=== PATIENT | male | born 1960 | race Caucasian/White ===

== ENCOUNTER 2016-07-28 11:41 | Inpatient (IN) | payer OTHER ==
[2016-07-28 13:01] VITALS: BMI 31.1
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
[2016-07-28] MEDS ORDERED: IBUPROFEN 400 MG TABLET (FP) PO PRN (15:12)
[2016-07-28] MEDS ORDERED: chlordiazePOXIDE HCL 25 MG CAPSULE PO PRN (15:12)
[2016-07-28] MEDS ORDERED: ACETAMINOPHEN 325 MG TABLET (FP) PO PRN (15:12)
[2016-07-28] MEDS ORDERED: MAGNESIUM HYDROX 2400MG/30ML ORAL SUSPENSION 30 ML CUP PO PRN (15:12)
[2016-07-28] MEDS ORDERED: MENTHOL/PHENOL 1 EACH UD MM PRN (15:12)
[2016-07-28] MEDS ORDERED: MAG HYDROX/AL HYDROX/SIMETH 30 ML UNIT-DOSE CUP PO PRN (15:12)
[2016-07-28] MEDS ORDERED: LOPERAMIDE HCL 2 MG CAPSULE PO PRN (15:12)
[2016-07-28] MEDS ORDERED: hydrOXYzine PAMOATE 25 MG CAPSULE (FP) PO PRN (15:12)
[2016-07-28] MEDS ORDERED: MAGNESIUM CITRATE 300 ML BOTTLE PO PRN (15:12)
[2016-07-28] MEDS: chlordiazePOXIDE HCL 25 MG CAPSULE PO SCH ×2 (17:35→22:48)
[2016-07-28 18:57] LABS: URINE APPEARANCE CLEAR; URINE BILIRUBIN NEGATIVE (NEGATIVE); URINE BLOOD NEGATIVE (NEGATIVE); URINE COLOR YELLOW; URINE GLUCOSE (UA) NEGATIVE (NEGATIVE); URINE KETONE NEGATIVE (NEGATIVE); URINE LEUK ESTERASE NEGATIVE (NEGATIVE); URINE NITRITE NEGATIVE (NEGATIVE); URINE PROTEIN NEGATIVE (NEGATIVE); URINE UROBILINOGEN 2.0 E.U/dl E.U./dl (0.2-1.0)
[2016-07-28] MEDS: diphenhydrAMINE HCL 50 MG CAPSULE PO PRN (22:48)
[2016-07-28] MEDS: THIAMINE HCL 100 MG TABLET (FP) PO SCH (22:48)
[2016-07-28] MEDS: METOPROLOL TARTRATE 25 MG TABLET (FP) PO SCH (22:48)
[2016-07-29] MEDS: chlordiazePOXIDE HCL 25 MG CAPSULE PO SCH ×4 (05:31→22:39)
[2016-07-29] MEDS: P-EPHED 60MG/TRIPROLIDI 2.5MG TABLET PO PRN ×2 (06:53→17:28)
[2016-07-29] MEDS ORDERED: PATIENT'S OWN MEDICATION (NON-FORMULARY) (Edoxaban Tosylate [Savaysa] 60 MG) PO SCH (10:00)
[2016-07-29] MEDS ORDERED: VALSARTAN 40 MG PO SCH (10:00)
[2016-07-29 10:07] LABS: MCH 34.7 pg (25.7-33.7); MEAN CELL VOLUME 102.3 fl (80-96); MEAN PLT VOLUME 8.5 fl (7.5-11.1); PLATELET COUNT 196 K/MM3 (134-434); RDW 14.2 % (11.9-15.9); WHITE BLOOD COUNT 7.4 K/mm3 (4.0-10.0)
[2016-07-29 10:11] LABS: MCHC 33.9 g/dl (32.0-35.9)
[2016-07-29 10:29] LABS: ALBUMIN 3.5 g/dl (3.4-5.0); ALK PHOS 57 U/L (45-117); ANION GAP 13 (8-16); BILIRUBIN,TOTAL 0.7 mg/dL (0.2-1.0); CALCIUM 9.1 mg/dL (8.5-10.1); CO2 27 mmol/L (21-32); COCKROFT - GAULT 145.75; CREATININE 0.8 mg/dL (0.7-1.3); GLUCOSE,RANDOM 90 mg/dL (74-106); SGOT/AST 38 U/L (15-37); SGPT/ALT 23 U/L (12-78); TOT PROT 6.9 g/dl (6.4-8.2)
[2016-07-29] MEDS: PANTOPRAZOLE 40 MG TABLET (FP) PO SCH (10:34)
[2016-07-29] MEDS: ASPIRIN 81 MG CHEWABLE TABLETS PO SCH (10:34)
[2016-07-29] MEDS: PRENATAL VITAMINS W/ FOLIC ACID TABLET (FP) PO SCH (10:34)
[2016-07-29] MEDS: METOPROLOL TARTRATE 25 MG TABLET (FP) PO SCH ×2 (10:35→22:39)
[2016-07-29] MEDS: EDOXABAN TOSYLATE 30 MG TABLET PO SCH (10:35)
[2016-07-29] MEDS: VALSARTAN 40 MG TABLET (FP) PO SCH (10:35)
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
[2016-07-29] MEDS: ESCITALOPRAM OXALATE 10 MG TABLET (FP) PO SCH (11:20)
--- NOTE | 2016-07-29 11:43 | PN ---
[facility] CIWA - CIWA Score Nausea/Vomitin-No Nausea/No Vomiting Muscle Tremors: 4-Moderate,w/Arms Extend Anxiety: 4-Mod. Anxious/Guarded Agitation: 4-Moderately Restless Paroxysmal Sweats: 1-Minimal Palms Moist Orientation: 0-Oriented Tacttile Disturbances: 3-Moderate Itch/Numb/Burn Auditory Disturbances: 0-None Visual Disturbances: 0-None Headache: 0-None Present CIWA-Ar Total Score: 16 S Progress Note (SOAP) Subjective: ANXIETY,TREMORS,SWEATS,INTERMITTENT SLEEP. PT STATES HX DEPRESSION AND PSYCH CONSULT. Objective: 07/29/16 11:43 Vital Signs Temperature 97.2 F L 07/29/16 09:42 Pulse Rate 91 H 07/29/16 09:42 Respiratory Rate 20 07/29/16 09:42 Blood Pressure 134/87 07/29/16 09:42 O2 Sat by Pulse Oximetry (%) Laboratory Last Values WBC 7.4 K/mm3 (4.0-10.0) 07/29/16 06:00 RBC 4.15 M/mm3 (4.00-5.60) 07/29/16 06:00 Hgb 14.4 GM/dL (11.7-16.9) 07/29/16 06:00 Hct 42.5 % (35.4-49) 07/29/16 06:00 MCV 102.3 fl (80-96) H 07/29/16 06:00 MCHC 33.9 g/dl (32.0-35.9) 07/29/16 06:00 RDW 14.2 % (11.9-15.9) 07/29/16 06:00 Plt Count 196 K/MM3 (134-434) 07/29/16 06:00 MPV 8.5 fl (7.5-11.1) 07/29/16 06:00 Sodium 142 mmol/L (136-145) 07/29/16 06:00 Potassium 4.0 mmol/L (3.5-5.1) 07/29/16 06:00 Chloride 102 mmol/L (98-107) 07/29/16 06:00 Carbon Dioxide 27 mmol/L (21-32) 07/29/16 06:00 Anion Gap 13 (8-16) 07/29/16 06:00 BUN 6 mg/dL (7-18) L 07/29/16 06:00 Creatinine 0.8 mg/dL (0.7-1.3) 07/29/16 06:00 Creat Clearance w eGFR > 60 (>60) 07/29/16 06:00 Random Glucose 90 mg/dL (74-106) 07/29/16 06:00 Calcium 9.1 mg/dL (8.5-10.1) 07/29/16 06:00 Total Bilirubin 0.7 mg/dL (0.2-1.0) 07/29/16 06:00 AST 38 U/L (15-37) H 07/29/16 06:00 ALT 23 U/L (12-78) 07/29/16 06:00 Alkaline Phosphatase 57 U/L (45-117) 07/29/16 06:00 Total Protein 6.9 g/dl (6.4-8.2) 07/29/16 06:00 Albumin 3.5 g/dl (3.4-5.0) 07/29/16 06:00 Urine Color Yellow 07/28/16 15:00 Urine Appearance Clear 07/28/16 15:00 Urine pH 5.0 (5.0-8.0) 07/28/16 15:00 Ur Specific [place] 1.025 (1.005-1.025) 07/28/16 15:00 Urine Protein Negative (NEGATIVE) 07/28/16 15:00 Urine Glucose (UA) Negative (NEGATIVE) 07/28/16 15:00 Urine Ketones Negative (NEGATIVE) 07/28/16 15:00 Urine Blood Negative (NEGATIVE) 07/28/16 15:00 Urine Nitrite Negative (NEGATIVE) 07/28/16 15:00 Urine Bilirubin Negative (NEGATIVE) 07/28/16 15:00 Urine Urobilinogen 2.0 e.u/dl E.U./dl (0.2-1.0) 07/28/16 15:00 Ur Leukocyte Esterase Negative (NEGATIVE) 07/28/16 15:00 Assessment: 07/29/16 11:43 WITHDRAWAL SX Plan: CONTINUE DETOX PSYCH CONSULT TODAY
--- NOTE | 2016-07-29 13:22 | EKG ---
Test Reason : Blood Pressure : / mmHG Vent. Rate : 081 BPM Atrial Rate : 084 BPM P-R Int : 000 ms QRS Dur : 166 ms QT Int : 438 ms P-R-T Axes : 000 265 090 degrees QTc Int : 508 ms Ventricular-paced rhythm ABNORMAL ECG NO PREVIOUS ECGS AVAILABLE Confirmed by FARZANA PINTO, GRADY ([id number]) on 07/29/2016 1:21:49 PM Referred By: Confirmed By:GARDY YANES MD
[2016-07-29] MEDS: traZODone HCL 50 MG TABLET (FP) PO SCH (22:39)
[2016-07-29] MEDS: THIAMINE HCL 100 MG TABLET (FP) PO SCH (22:39)
[2016-07-29] MEDS: diphenhydrAMINE HCL 50 MG CAPSULE PO PRN (22:40)
[2016-07-30] MEDS: chlordiazePOXIDE HCL 25 MG CAPSULE PO SCH ×2 (05:44→10:45)
[2016-07-30] MEDS: P-EPHED 60MG/TRIPROLIDI 2.5MG TABLET PO PRN ×2 (05:45→15:01)
[2016-07-30] MEDS ORDERED: BACITRACIN 0.9 GM PACKET TP SCH (10:00)
[2016-07-30] MEDS: PRENATAL VITAMINS W/ FOLIC ACID TABLET (FP) PO SCH (10:44)
[2016-07-30] MEDS: ASPIRIN 81 MG CHEWABLE TABLETS PO SCH (10:44)
[2016-07-30] MEDS: PANTOPRAZOLE 40 MG TABLET (FP) PO SCH (10:44)
[2016-07-30] MEDS: ESCITALOPRAM OXALATE 10 MG TABLET (FP) PO SCH (10:44)
[2016-07-30] MEDS: EDOXABAN TOSYLATE 30 MG TABLET PO SCH (10:45)
[2016-07-30] MEDS: METOPROLOL TARTRATE 25 MG TABLET (FP) PO SCH ×2 (10:45→22:48)
[2016-07-30] MEDS: BACITRACIN 0.9 GM PACKET TP SCH ×2 (10:45→22:48)
[2016-07-30] MEDS: VALSARTAN 40 MG TABLET (FP) PO SCH (10:45)
--- NOTE | 2016-07-30 12:09 | PN ---
[facility] CIWA - CIWA Score Nausea/Vomitin-No Nausea/No Vomiting Muscle Tremors: 4-Moderate,w/Arms Extend Anxiety: 4-Mod. Anxious/Guarded Agitation: 4-Moderately Restless Paroxysmal Sweats: 1-Minimal Palms Moist Orientation: 0-Oriented Tacttile Disturbances: 3-Moderate Itch/Numb/Burn Auditory Disturbances: 0-None Visual Disturbances: 0-None Headache: 0-None Present CIWA-Ar Total Score: 16 S Progress Note (SOAP) Subjective: ANXIETY,SWEATS,MULTIPLE ITCHY RED OLD/NEW LESIONS ON LEGS AND RIGHT HAND. Objective: 07/30/16 12:08 Vital Signs Temperature 97.1 F L 07/30/16 09:28 Pulse Rate 79 07/30/16 09:28 Respiratory Rate 18 07/30/16 09:28 Blood Pressure 110/76 07/30/16 09:28 O2 Sat by Pulse Oximetry (%) Laboratory Last Values WBC 7.4 K/mm3 (4.0-10.0) 07/29/16 06:00 RBC 4.15 M/mm3 (4.00-5.60) 07/29/16 06:00 Hgb 14.4 GM/dL (11.7-16.9) 07/29/16 06:00 Hct 42.5 % (35.4-49) 07/29/16 06:00 MCV 102.3 fl (80-96) H 07/29/16 06:00 MCHC 33.9 g/dl (32.0-35.9) 07/29/16 06:00 RDW 14.2 % (11.9-15.9) 07/29/16 06:00 Plt Count 196 K/MM3 (134-434) 07/29/16 06:00 MPV 8.5 fl (7.5-11.1) 07/29/16 06:00 Sodium 142 mmol/L (136-145) 07/29/16 06:00 Potassium 4.0 mmol/L (3.5-5.1) 07/29/16 06:00 Chloride 102 mmol/L (98-107) 07/29/16 06:00 Carbon Dioxide 27 mmol/L (21-32) 07/29/16 06:00 Anion Gap 13 (8-16) 07/29/16 06:00 BUN 6 mg/dL (7-18) L 07/29/16 06:00 Creatinine 0.8 mg/dL (0.7-1.3) 07/29/16 06:00 Creat Clearance w eGFR > 60 (>60) 07/29/16 06:00 Random Glucose 90 mg/dL (74-106) 07/29/16 06:00 Calcium 9.1 mg/dL (8.5-10.1) 07/29/16 06:00 Total Bilirubin 0.7 mg/dL (0.2-1.0) 07/29/16 06:00 AST 38 U/L (15-37) H 07/29/16 06:00 ALT 23 U/L (12-78) 07/29/16 06:00 Alkaline Phosphatase 57 U/L (45-117) 07/29/16 06:00 Total Protein 6.9 g/dl (6.4-8.2) 07/29/16 06:00 Albumin 3.5 g/dl (3.4-5.0) 07/29/16 06:00 Urine Color Yellow 07/28/16 15:00 Urine Appearance Clear 07/28/16 15:00 Urine pH 5.0 (5.0-8.0) 07/28/16 15:00 Ur Specific [place] 1.025 (1.005-1.025) 07/28/16 15:00 Urine Protein Negative (NEGATIVE) 07/28/16 15:00 Urine Glucose (UA) Negative (NEGATIVE) 07/28/16 15:00 Urine Ketones Negative (NEGATIVE) 07/28/16 15:00 Urine Blood Negative (NEGATIVE) 07/28/16 15:00 Urine Nitrite Negative (NEGATIVE) 07/28/16 15:00 Urine Bilirubin Negative (NEGATIVE) 07/28/16 15:00 Urine Urobilinogen 2.0 e.u/dl E.U./dl (0.2-1.0) 07/28/16 15:00 Ur Leukocyte Esterase Negative (NEGATIVE) 07/28/16 15:00 RPR Titer Nonreactive (NONREACTIVE) 07/29/16 06:00 Assessment: 07/30/16 12:09 WITHDRAWAL SX BODY RASH Plan: CONTINUE DETOX BACITRACIN OINTMENT DIRECTED
[2016-07-30] MEDS: guaiFENesin/D-METHORPHAN HB 10 ML UNIT-DOSE CUPS PO PRN (15:00)
[2016-07-30] MEDS: chlordiazePOXIDE 5 MG CAPSULE PO SCH ×2 (17:28→22:49)
[2016-07-30] MEDS: traZODone HCL 50 MG TABLET (FP) PO SCH (22:48)
[2016-07-30] MEDS: THIAMINE HCL 100 MG TABLET (FP) PO SCH (22:48)
[2016-07-31] MEDS: chlordiazePOXIDE 5 MG CAPSULE PO SCH ×2 (06:04→10:49)
[2016-07-31] MEDS: METOPROLOL TARTRATE 25 MG TABLET (FP) PO SCH ×2 (10:50→22:47)
[2016-07-31] MEDS: BACITRACIN 0.9 GM PACKET TP SCH ×2 (10:50→22:47)
[2016-07-31] MEDS: ESCITALOPRAM OXALATE 10 MG TABLET (FP) PO SCH (10:50)
[2016-07-31] MEDS: PANTOPRAZOLE 40 MG TABLET (FP) PO SCH (10:50)
[2016-07-31] MEDS: VALSARTAN 40 MG TABLET (FP) PO SCH (10:50)
[2016-07-31] MEDS: PRENATAL VITAMINS W/ FOLIC ACID TABLET (FP) PO SCH (10:50)
[2016-07-31] MEDS: ASPIRIN 81 MG CHEWABLE TABLETS PO SCH (10:50)
[2016-07-31] MEDS: EDOXABAN TOSYLATE 30 MG TABLET PO SCH (10:50)
--- NOTE | 2016-07-31 12:10 | PN ---
[facility] Progress Note (SOAP) Subjective: DECREASED ANXIETY,TREMORS. Objective: 07/31/16 12:10 Vital Signs Temperature 97.8 F 07/31/16 10:28 Pulse Rate 62 07/31/16 10:28 Respiratory Rate 18 07/31/16 10:28 Blood Pressure 99/73 07/31/16 10:28 O2 Sat by Pulse Oximetry (%) Assessment: 07/31/16 12:10 DECREASED WITHDRAWAL SX Plan: CONTINUE DETOX
[2016-07-31] MEDS: guaiFENesin/D-METHORPHAN HB 10 ML UNIT-DOSE CUPS PO PRN (12:46)
[2016-07-31] MEDS: chlordiazePOXIDE HCL 10 MG CAPSULE PO SCH ×2 (17:27→22:47)
[2016-07-31] MEDS: traZODone HCL 50 MG TABLET (FP) PO SCH (22:47)
[2016-07-31] MEDS: diphenhydrAMINE HCL 50 MG CAPSULE PO PRN (22:48)
[2016-07-31] MEDS: THIAMINE HCL 100 MG TABLET (FP) PO SCH (22:59)
[2016-08-01] MEDS: chlordiazePOXIDE HCL 10 MG CAPSULE PO SCH ×2 (06:08→10:53)
[2016-08-01] MEDS: PRENATAL VITAMINS W/ FOLIC ACID TABLET (FP) PO SCH (10:52)
[2016-08-01] MEDS: BACITRACIN 0.9 GM PACKET TP SCH (10:52)
[2016-08-01] MEDS: EDOXABAN TOSYLATE 30 MG TABLET PO SCH (10:53)
[2016-08-01] MEDS: VALSARTAN 40 MG TABLET (FP) PO SCH (10:53)
[2016-08-01] MEDS: PANTOPRAZOLE 40 MG TABLET (FP) PO SCH (10:53)
[2016-08-01] MEDS: ESCITALOPRAM OXALATE 10 MG TABLET (FP) PO SCH (10:53)
[2016-08-01] MEDS: METOPROLOL TARTRATE 25 MG TABLET (FP) PO SCH (10:53)
[2016-08-01] MEDS: ASPIRIN 81 MG CHEWABLE TABLETS PO SCH (10:53)
[2016-08-01 11:47] VITALS: BP 91/63; PULSE 63; TEMP 97.7
--- NOTE | 2016-08-01 14:40 | DS ---
[facility] Detox Discharge Summary Admission Date: 07/28/16 Discharge Date: 08/01/16 - History Present History: Alcohol Dependence Additional Comments: ADVISED PATIENT TO FOLLOW-UP WITH [facility] / REHAB MEDICAL PROVIDER AFTER DISCHARGE FROM DETOX FOR GENERAL MEDICAL ASSESSMENT AND FOR ABNORMAL ADMISSION LAB VALUES. Pertinent Past History: HTN, A-Fib, Pacemaker, Hx. of CVA, Hypercholesterolemia, Depression. - Physical Exam Results Vital Signs: Vital Signs Temperature 97.7 F 08/01/16 11:47 Pulse Rate 63 08/01/16 11:47 Respiratory Rate 18 08/01/16 11:47 Blood Pressure 91/63 08/01/16 11:47 O2 Sat by Pulse Oximetry (%) Pertinent Admission Physical Exam Findings: WITHDRAWAL SYMPTOMS. Laboratory Last Values WBC 7.4 K/mm3 (4.0-10.0) 07/29/16 06:00 RBC 4.15 M/mm3 (4.00-5.60) 07/29/16 06:00 Hgb 14.4 GM/dL (11.7-16.9) 07/29/16 06:00 Hct 42.5 % (35.4-49) 07/29/16 06:00 MCV 102.3 fl (80-96) H 07/29/16 06:00 MCHC 33.9 g/dl (32.0-35.9) 07/29/16 06:00 RDW 14.2 % (11.9-15.9) 07/29/16 06:00 Plt Count 196 K/MM3 (134-434) 07/29/16 06:00 MPV 8.5 fl (7.5-11.1) 07/29/16 06:00 Sodium 142 mmol/L (136-145) 07/29/16 06:00 Potassium 4.0 mmol/L (3.5-5.1) 07/29/16 06:00 Chloride 102 mmol/L (98-107) 07/29/16 06:00 Carbon Dioxide 27 mmol/L (21-32) 07/29/16 06:00 Anion Gap 13 (8-16) 07/29/16 06:00 BUN 6 mg/dL (7-18) L 07/29/16 06:00 Creatinine 0.8 mg/dL (0.7-1.3) 07/29/16 06:00 Creat Clearance w eGFR > 60 (>60) 07/29/16 06:00 Random Glucose 90 mg/dL (74-106) 07/29/16 06:00 Calcium 9.1 mg/dL (8.5-10.1) 07/29/16 06:00 Total Bilirubin 0.7 mg/dL (0.2-1.0) 07/29/16 06:00 AST 38 U/L (15-37) H 07/29/16 06:00 ALT 23 U/L (12-78) 07/29/16 06:00 Alkaline Phosphatase 57 U/L (45-117) 07/29/16 06:00 Total Protein 6.9 g/dl (6.4-8.2) 07/29/16 06:00 Albumin 3.5 g/dl (3.4-5.0) 07/29/16 06:00 Urine Color Yellow 07/28/16 15:00 Urine Appearance Clear 07/28/16 15:00 Urine pH 5.0 (5.0-8.0) 07/28/16 15:00 Ur Specific [place] 1.025 (1.005-1.025) 07/28/16 15:00 Urine Protein Negative (NEGATIVE) 07/28/16 15:00 Urine Glucose (UA) Negative (NEGATIVE) 07/28/16 15:00 Urine Ketones Negative (NEGATIVE) 07/28/16 15:00 Urine Blood Negative (NEGATIVE) 07/28/16 15:00 Urine Nitrite Negative (NEGATIVE) 07/28/16 15:00 Urine Bilirubin Negative (NEGATIVE) 07/28/16 15:00 Urine Urobilinogen 2.0 e.u/dl E.U./dl (0.2-1.0) 07/28/16 15:00 Ur Leukocyte Esterase Negative (NEGATIVE) 07/28/16 15:00 RPR Titer Nonreactive (NONREACTIVE) 07/29/16 06:00 LABS NOTED. - Treatment Hospital Course: Detox Protocol Followed, Detoxed Safely, Responded well, Discharged Condition Good, Rehab Referral Accepted Patient has Accepted a Rehab Referral to: YES - [facility]. - Medication Discharge Medications: Ambulatory Orders Aspirin [ASA -] 81 mg PO DAILY 07/28/16 Edoxaban Tosylate [Savaysa] 60 mg PO DAILY 07/28/16 Escitalopram Oxalate [Lexapro -] 20 mg PO DAILY 07/28/16 Folic Acid - 1 mg PO DAILY 07/28/16 Metoprolol Tartrate [Lopressor -] 25 mg PO BID 07/28/16 Pantoprazole Sodium [Protonix -] 40 mg PO DAILY 07/28/16 Trazodone HCl [Desyrel -] 50 mg PO HS 07/28/16 Valsartan [Diovan] 40 mg PO DAILY 07/28/16 - Diagnosis (1) Alcohol dependence with uncomplicated withdrawal Current Visit: Yes Status: Acute (2) Alcohol-induced mood disorder Current Visit: Yes Status: Acute (3) Depressive disorder Current Visit: Yes Status: Chronic (4) Insomnia Current Visit: Yes Status: Chronic Qualifiers: Insomnia type: unspecified Qualified Code(s): G47.00 - Insomnia, unspecified (5) A-fib Current Visit: Yes Status: Chronic Qualifiers: Atrial fibrillation type: unspecified Qualified Code(s): I48.91 - Unspecified atrial fibrillation (6) H/O fracture of ankle Current Visit: Yes Status: Chronic (7) HTN (hypertension) Current Visit: Yes Status: Chronic Qualifiers: Hypertension type: essential hypertension Qualified Code(s): I10 - Essential (primary) hypertension (8) Hypercholesterolemia Current Visit: Yes Status: Chronic (9) Left ankle swelling Current Visit: Yes Status: Chronic (10) Pacemaker Current Visit: Yes Status: Chronic (11) Status post CVA Current Visit: Yes Status: Chronic - AMA Did Patient Leave Against Medical Advice: No
== END 2016-08-01 12:25 | disposition other institution (70) | DRG 897 ==
LOC: YASAS 11:41 → Y3N 15:19
PROVIDERS: ADMIT Internal Medicine Addiction Medicine; ATTEND Internal Medicine Addiction Medicine
PROC: HZ2ZZZZ Detoxification Services for Substance Abuse Treatment (ICD-10-PCS; principal; 2016-08-01)
DX: F10.230 Alcohol dependence with withdrawal, uncomplicated (principal); F10.24 Alcohol dependence with alcohol-induced mood disorder; F32.89 Other specified depressive episodes; G47.00 Insomnia, unspecified; I48.91 Unspecified atrial fibrillation; I10 Essential (primary) hypertension; E78.00 Pure hypercholesterolemia, unspecified; Z86.73 Personal history of transient ischemic attack (TIA), and cerebral infarction without residual deficits; Z87.81 Personal history of (healed) traumatic fracture
CPT/HCPCS: 36415; 80053; 81003; 85027; 86593; 93005; 93010

== ENCOUNTER 2016-08-01 12:40 | Inpatient (IN) | payer OTHER ==
[2016-08-01] MEDS ORDERED: P-EPHED 60MG/TRIPROLIDI 2.5MG TABLET PO PRN (13:49)
[2016-08-01] MEDS ORDERED: MENTHOL/PHENOL 1 EACH UD MM PRN (13:49)
[2016-08-01] MEDS ORDERED: MAG HYDROX/AL HYDROX/SIMETH 30 ML UNIT-DOSE CUP PO PRN (13:49)
[2016-08-01] MEDS ORDERED: diphenhydrAMINE HCL 50 MG CAPSULE PO PRN (13:49)
[2016-08-01] MEDS ORDERED: LOPERAMIDE HCL 2 MG CAPSULE PO PRN (13:49)
[2016-08-01] MEDS ORDERED: MAGNESIUM HYDROX 2400MG/30ML ORAL SUSPENSION 30 ML CUP PO PRN (13:49)
[2016-08-01] MEDS ORDERED: MAGNESIUM CITRATE 300 ML BOTTLE PO PRN (13:49)
[2016-08-01] MEDS ORDERED: guaiFENesin/D-METHORPHAN HB 10 ML UNIT-DOSE CUPS PO PRN (13:49)
--- NOTE | 2016-08-01 13:56 | HP ---
[facility] Re[facility] Assess/Revision - Admission History Admitted to Rehab from: [facility] Date of Admission to Rehab: 08/01/16 - Vital signs Vital Signs: Vital Signs Period Temp Pulse Resp BP Sys/Alarcon Pulse Ox Last 24 Hr 97.7 F 80 20 114/58 - Findings Detox History & Physical reviewed: Yes Concur with findings: Yes Comments/Additional Findings: FOR REHAB PROTOCOL
[2016-08-01] MEDS: THIAMINE HCL 100 MG TABLET (FP) PO SCH (21:29)
[2016-08-01] MEDS: IBUPROFEN 400 MG TABLET (FP) PO PRN (21:30)
[2016-08-01] MEDS: hydrOXYzine PAMOATE 50 MG CAPSULE (FP) PO PRN (21:31)
[2016-08-01] MEDS: METOPROLOL TARTRATE 25 MG TABLET (FP) PO SCH (21:31)
[2016-08-02] MEDS ORDERED: PT OWN MED DRAWER 7, Y5N ONE (08:58)
[2016-08-02] MEDS: VALSARTAN 40 MG TABLET (FP) PO SCH (09:48)
[2016-08-02] MEDS: PANTOPRAZOLE 40 MG TABLET (FP) PO SCH (09:49)
[2016-08-02] MEDS: METOPROLOL TARTRATE 25 MG TABLET (FP) PO SCH ×2 (09:49→21:33)
[2016-08-02] MEDS: ASPIRIN 81 MG CHEWABLE TABLETS PO SCH (09:49)
[2016-08-02] MEDS: PRENATAL VITAMINS W/ FOLIC ACID TABLET (FP) PO SCH (09:49)
[2016-08-02] MEDS ORDERED: INFLUENZA VACCINE 60 MCG/0.5 ML (P/F DISP.SYRIN 16-17) IM ONE (13:16)
[2016-08-02] MEDS: IBUPROFEN 400 MG TABLET (FP) PO PRN (20:07)
[2016-08-02] MEDS: THIAMINE HCL 100 MG TABLET (FP) PO SCH (21:33)
[2016-08-02] MEDS: hydrOXYzine PAMOATE 50 MG CAPSULE (FP) PO PRN (21:33)
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
[2016-08-03] MEDS: ASPIRIN 81 MG CHEWABLE TABLETS PO SCH (09:34)
[2016-08-03] MEDS: PRENATAL VITAMINS W/ FOLIC ACID TABLET (FP) PO SCH (09:34)
[2016-08-03] MEDS: VALSARTAN 40 MG TABLET (FP) PO SCH (09:35)
[2016-08-03] MEDS: METOPROLOL TARTRATE 25 MG TABLET (FP) PO SCH ×2 (09:35→21:59)
[2016-08-03] MEDS: PANTOPRAZOLE 40 MG TABLET (FP) PO SCH (09:35)
[2016-08-03 13:26] LABS: HIV 1 & 2 AB NEGATIVE; HIV 1 AGp24 NEGATIVE
[2016-08-03] MEDS: ESCITALOPRAM OXALATE 20 MG TABLET (FP) PO SCH (14:18)
[2016-08-03] MEDS: CYCLOBENZAPRINE HCL 10 MG TABLET (FP) PO PRN (20:19)
[2016-08-03] MEDS: IBUPROFEN 400 MG TABLET (FP) PO PRN (20:19)
[2016-08-03] MEDS: THIAMINE HCL 100 MG TABLET (FP) PO SCH (21:59)
[2016-08-03] MEDS: traZODone HCL 50 MG TABLET (FP) PO SCH (21:59)
[2016-08-03] MEDS: hydrOXYzine PAMOATE 50 MG CAPSULE (FP) PO PRN (21:59)
[2016-08-04] MEDS: IBUPROFEN 400 MG TABLET (FP) PO PRN (06:20)
[2016-08-04] MEDS: CYCLOBENZAPRINE HCL 10 MG TABLET (FP) PO PRN ×3 (06:21→21:25)
[2016-08-04] MEDS ORDERED: PT OWN MED DRAWER 7, Y5N ONE (08:57)
[2016-08-04] MEDS: PANTOPRAZOLE 40 MG TABLET (FP) PO SCH (09:49)
[2016-08-04] MEDS: VALSARTAN 40 MG TABLET (FP) PO SCH (09:49)
[2016-08-04] MEDS: ASPIRIN 81 MG CHEWABLE TABLETS PO SCH (09:49)
[2016-08-04] MEDS: PRENATAL VITAMINS W/ FOLIC ACID TABLET (FP) PO SCH (09:49)
[2016-08-04] MEDS: METOPROLOL TARTRATE 25 MG TABLET (FP) PO SCH ×2 (09:49→21:27)
[2016-08-04] MEDS: ESCITALOPRAM OXALATE 20 MG TABLET (FP) PO SCH (09:49)
[2016-08-04] MEDS: THIAMINE HCL 100 MG TABLET (FP) PO SCH (21:26)
[2016-08-04] MEDS: traZODone HCL 50 MG TABLET (FP) PO SCH (21:26)
[2016-08-05] MEDS: CYCLOBENZAPRINE HCL 10 MG TABLET (FP) PO PRN ×3 (06:41→21:55)
[2016-08-05] MEDS: IBUPROFEN 400 MG TABLET (FP) PO PRN ×2 (06:41→14:01)
[2016-08-05] MEDS: ASPIRIN 81 MG CHEWABLE TABLETS PO SCH (10:38)
[2016-08-05] MEDS: PRENATAL VITAMINS W/ FOLIC ACID TABLET (FP) PO SCH (10:38)
[2016-08-05] MEDS: ESCITALOPRAM OXALATE 20 MG TABLET (FP) PO SCH (10:38)
[2016-08-05] MEDS: METOPROLOL TARTRATE 25 MG TABLET (FP) PO SCH ×2 (10:38→21:56)
[2016-08-05] MEDS: PANTOPRAZOLE 40 MG TABLET (FP) PO SCH (10:38)
[2016-08-05] MEDS ORDERED: PT OWN MED DRAWER 7, Y5N ONE (10:40)
[2016-08-05] MEDS: VALSARTAN 40 MG TABLET (FP) PO SCH (10:40)
[2016-08-05] MEDS ORDERED: HYDROCORTISONE 1% TOPICAL CREAM 30 GM TUBE TP PRN (14:17)
[2016-08-05] MEDS ORDERED: EDOXABAN TOSYLATE 30 MG TABLET PO ONE (17:15)
[2016-08-05] MEDS: traZODone HCL 50 MG TABLET (FP) PO SCH (21:55)
[2016-08-05] MEDS: THIAMINE HCL 100 MG TABLET (FP) PO SCH (21:55)
[2016-08-05] MEDS: ACETAMINOPHEN 325 MG TABLET (FP) PO PRN (21:56)
[2016-08-06] MEDS: ACETAMINOPHEN 325 MG TABLET (FP) PO PRN ×2 (06:05→20:11)
[2016-08-06] MEDS: CYCLOBENZAPRINE HCL 10 MG TABLET (FP) PO PRN ×3 (06:05→20:11)
[2016-08-06] MEDS ORDERED: PT OWN MED DRAWER 7, Y5N ONE ×3 (08:37→16:03)
[2016-08-06] MEDS: ESCITALOPRAM OXALATE 20 MG TABLET (FP) PO SCH (09:54)
[2016-08-06] MEDS: METOPROLOL TARTRATE 25 MG TABLET (FP) PO SCH ×2 (09:54→21:55)
[2016-08-06] MEDS: PRENATAL VITAMINS W/ FOLIC ACID TABLET (FP) PO SCH (09:54)
[2016-08-06] MEDS: PANTOPRAZOLE 40 MG TABLET (FP) PO SCH (09:54)
[2016-08-06] MEDS: ASPIRIN 81 MG CHEWABLE TABLETS PO SCH (09:54)
[2016-08-06] MEDS: VALSARTAN 40 MG TABLET (FP) PO SCH (09:56)
[2016-08-06] MEDS: EDOXABAN TOSYLATE 30 MG TABLET PO SCH (09:57)
[2016-08-06] MEDS: THIAMINE HCL 100 MG TABLET (FP) PO SCH (21:55)
[2016-08-06] MEDS: traZODone HCL 50 MG TABLET (FP) PO SCH (21:55)
[2016-08-07] MEDS: ACETAMINOPHEN 325 MG TABLET (FP) PO PRN (06:13)
[2016-08-07] MEDS: CYCLOBENZAPRINE HCL 10 MG TABLET (FP) PO PRN ×2 (06:13→10:34)
[2016-08-07 06:46] VITALS: TEMP 97.8
[2016-08-07] MEDS ORDERED: PT OWN MED DRAWER 7, Y5N ONE ×3 (08:56→11:58)
--- NOTE | 2016-08-07 09:26 | PN ---
Psychiatric Progress Note Vital Signs: Vital Signs Period Temp Pulse Resp BP Sys/Alarcon Pulse Ox Last 24 Hr 97.8 F 80-119 18-20 102-131/64-87 Date of Session: 08/07/16 Chief Complaint:: Discharge Note HPI: Patient addressing Alcohol dependence comorbid with Depressive Disorder ROS: HTN, Hyperlipidemia, AFib and S/P CVA were medically managed Current Medications: Active Medications Generic Name Dose Route Start Last Admin Trade Name Freq PRN Reason Stop Dose Admin Acetaminophen 650 mg 08/01/16 13:49 08/07/16 06:13 Tylenol - PO 650 mg Q4H PRN Administration FEVER OR PAIN Al Hydroxide/Mg Hydroxide 30 ml 08/01/16 13:49 Mylanta Oral Suspension - PO Q6H PRN DYSPEPSIA Aspirin 81 mg 08/02/16 10:00 08/06/16 09:54 Asa - PO 81 mg DAILY FANTASMA Administration Cyclobenzaprine HCl 10 mg 08/03/16 14:32 08/07/16 06:13 Flexeril - PO 10 mg TID PRN Administration MUSCLE SPASMS Diphenhydramine HCl 50 mg 08/01/16 13:49 Benadryl - PO HSMR1 PRN FOR ITCHING Edoxaban 60 mg 08/06/16 10:00 08/06/16 09:57 Savaysa PO 60 mg DAILY FANTASMA Administration Escitalopram Oxalate 20 mg 08/03/16 12:45 08/06/16 09:54 Lexapro - PO 20 mg DAILY FANTASMA Administration Eucalyptus/Menthol/Phenol/Sorbitol 1 each 08/01/16 13:49 Cepastat Lozenge - MM Q4H PRN SORE THROAT Guaifenesin 10 ml 08/01/16 13:49 08/03/16 13:15 Robitussin Dm - PO 10 ml Q6H PRN Administration COUGH Hydrocortisone 1 applic 08/05/16 14:17 08/06/16 09:55 Hytone 1% Cream - TP 1 applic BID PRN Administration FOR ITCHING Hydroxyzine Pamoate 50 mg 08/01/16 13:49 08/03/16 21:59 Vistaril - PO 50 mg Q4H PRN Administration AGITATION Loperamide HCl 4 mg 08/01/16 13:49 08/05/16 14:25 Imodium - PO 4 mg Q6H PRN Administration DIARRHEA Magnesium Hydroxide 30 ml 08/01/16 13:49 Milk Of Magnesia - PO DAILY PRN CONSTIPATION Metoprolol Tartrate 25 mg 08/01/16 22:00 08/06/16 21:55 Lopressor - PO 25 mg BID FANTASMA Administration Pantoprazole Sodium 40 mg 08/02/16 10:00 08/06/16 09:54 Protonix - PO 40 mg DAILY FANTASMA Administration Multivit/Folic Acid/Iron 1 tab 08/02/16 10:00 08/06/16 09:54 Vitamins (Sjr) - PO 1 tab DAILY FANTASMA Administration Pseudoephedrine/Triprolidine 1 combo 08/01/16 13:49 Actifed - PO TID PRN NASAL CONGESTION Thiamine HCl 100 mg 08/01/16 22:00 08/06/16 21:55 Vitamin B1 - PO 100 mg HS FANTASMA Administration Trazodone HCl 50 mg 08/03/16 22:00 08/06/16 21:55 Desyrel - PO 50 mg HS FANTASMA Administration Valsartan 40 mg 08/02/16 10:00 08/06/16 09:56 Diovan - PO 40 mg DAILY FANTASMA Administration Current Side Effect: No Lab tests ordered: Yes Lab tests reviewed: Yes Provider note:: Patient has completed this program today. He has met his treatment goals and will continue to address his issues in outpatient treatment at [facility]. 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 He responded well to Lexapro 20 mg po daily and Trazadone 50 mg po HS. Script for 30 days supply of these medications are electronically transmitted to [email or web address] at [address] [place] [id number]. He is stable for discharge today Total face to face time:: 35 Mental Status Exam - Mental Status Exam Alert and Oriented to: Time, Place, Person Cognitive Function: Fair Patient Appearance: Well Groomed Mood: Hopeful, Euthymic Affect: Appropriate Patient Behavior: Cooperative Speech Pattern: Clear Voice Loudness: Normal Thought Process: Intact Thought Disorder: Not Present Hallucinations: Denies Suicidal Ideation: Denies Homicidal Ideation: Denies Insight/Judgement: Fair Sleep: Fair Appetite: Good Muscle strength/Tone: Normal Gait/Station: Normal Psychiatric Treatment Plan - Problem List (1) Alcohol dependence with uncomplicated withdrawal Current Visit: No (2) Depressive disorder Current Visit: No (3) H/O fracture of ankle Current Visit: No (4) HTN (hypertension) Current Visit: No Qualifiers: Hypertension type: essential hypertension Qualified Code(s): I10 - Essential (primary) hypertension (5) Hypercholesterolemia Current Visit: No (6) Pacemaker Current Visit: No (7) Status post CVA Current Visit: No Initial treatment plan: Patient is discharged today and referred to [facility] for outpatient treatment
[2016-08-07 10:15] VITALS: BP 103/70; PULSE 80
[2016-08-07] MEDS: PRENATAL VITAMINS W/ FOLIC ACID TABLET (FP) PO SCH (10:20)
[2016-08-07] MEDS: ASPIRIN 81 MG CHEWABLE TABLETS PO SCH (10:20)
[2016-08-07] MEDS: METOPROLOL TARTRATE 25 MG TABLET (FP) PO SCH (10:20)
[2016-08-07] MEDS: VALSARTAN 40 MG TABLET (FP) PO SCH (10:20)
[2016-08-07] MEDS: EDOXABAN TOSYLATE 30 MG TABLET PO SCH (10:21)
[2016-08-07] MEDS: PANTOPRAZOLE 40 MG TABLET (FP) PO SCH (10:21)
[2016-08-07] MEDS: ESCITALOPRAM OXALATE 20 MG TABLET (FP) PO SCH (10:24)
== END 2016-08-07 12:15 | disposition home or self-care (01) | DRG 895 ==
LOC: YASAS 12:40 → Y3W 12:41
PROVIDERS: ADMIT Psychiatry & Neurology Psychiatry; ATTEND Psychiatry & Neurology Psychiatry
PROC: HZ42ZZZ Group Counseling for Substance Abuse Treatment, Cognitive-Behavioral (ICD-10-PCS; principal; 2016-08-07)
DX: F10.230 Alcohol dependence with withdrawal, uncomplicated (principal); I69.851 Hemiplegia and hemiparesis following other cerebrovascular disease affecting right dominant side; F39 Unspecified mood [affective] disorder; I10 Essential (primary) hypertension; I48.91 Unspecified atrial fibrillation; Z95.0 Presence of cardiac pacemaker; Z87.81 Personal history of (healed) traumatic fracture
CPT/HCPCS: 36415; 87389; 90686; G0008

== ENCOUNTER 2021-06-16 22:13 | Inpatient (IN) | payer OTHER ==
[2021-06-16 23:39] LABS: BASO % 0.9 % (0-2.0); HEMATOCRIT 41.4 % (35.4-49); HEMOGLOBIN 14.1 GM/dL (11.7-16.9); LYMPH % 32.7 % (8-40); MCH 32.3 pg (25.7-33.7); MEAN CELL VOLUME 94.9 fl (80-96); MONO % 10.2 % (3.8-10.2); NEUT % 52.2 % (42.8-82.8); PLATELET COUNT 205 10^3/uL (134-434); RBC 4.36 M/mm3 (4.00-5.60); RDW 15.1 % (11.9-15.9); WHITE BLOOD COUNT 4.8 K/mm3 (4.0-10.0)
[2021-06-17] LABS: ALBUMIN 3.5 g/dl (3.4-5.0); BLOOD UREA NITROGEN 16.7 mg/dL (7-18); CALCIUM 8.9 mg/dL (8.5-10.1)
[2021-06-17 00:03] LABS: CREATININE 1.1 mg/dL (0.55-1.3)
[2021-06-17 00:05] LABS: BILIRUBIN,TOTAL 0.5 mg/dL (0.2-1)
[2021-06-17 00:08] LABS: N-TERMINAL BNP 1429.2 pg/ml (5-125)
[2021-06-17] MEDS ORDERED: FUROSEMIDE 40 MG/4 ML INJECTABLE VIAL IVPUSH ONE ×2 (00:11→02:37)
[2021-06-17] MEDS ORDERED: MAGNESIUM SULF 50% (8.12 MEQ/2 ML-1 GM VIAL) IVPB ONE (00:11)
[2021-06-17] MEDS ORDERED: MAGNESIUM SULFATE IN WATER 2 GM/50 ML IVPB IVPB ONE ×2 (00:26→03:07)
[2021-06-17] MEDS ORDERED: FUROSEMIDE 40 MG/4 ML INJECTABLE VIAL ONE ×2 (00:26→02:59)
[2021-06-17 01:20] LABS: PH,URINE 5.5 (5.0-8.0); URINE APPEARANCE CLEAR; URINE BILIRUBIN NEGATIVE (NEGATIVE); URINE COLOR YELLOW; URINE GLUCOSE (UA) NEGATIVE (NEGATIVE); URINE KETONE NEGATIVE (NEGATIVE); URINE LEUK ESTERASE NEGATIVE (NEGATIVE); URINE NITRITE NEGATIVE (NEGATIVE); URINE PROTEIN NEGATIVE (NEGATIVE); URINE UROBILINOGEN 0.2 mg/dL (0.2-1.0)
[2021-06-17] MEDS ORDERED: MAGNESIUM 2GM/50ML STERILE WATER IVPB IVPB ONE (03:00)
[2021-06-17 03:19] LABS: PHOSPHOROUS 4.6 mg/dL (2.5-4.9)
[2021-06-17] MEDS: GABAPENTIN 300 MG CAPSULE PO SCH ×3 (06:46→21:42)
[2021-06-17] MEDS ORDERED: FUROSEMIDE 40 MG TABLET (FP) PO SCH (10:00)
[2021-06-17] MEDS: FOLIC ACID 1 MG TABLET (FP) PO SCH (10:39)
[2021-06-17] MEDS: NALTREXONE HCL 50 MG TABLET PO SCH (12:45)
[2021-06-17 16:27] LABS: ARTERIAL BLD GAS O2 SATURATION 95.8 % (95-98); ARTERIAL BLOOD GAS BASE EXCESS 2.8 mmol/L (-2-2); ARTERIAL BLOOD GAS PO2 85.3 mmHg (80-100); ARTERIAL BLOOD GAS pH 7.343 (7.350-7.450)
[2021-06-17 16:28] LABS: ALLENS TEST POSITIVE
[2021-06-17] MEDS: RIVAROXABAN 20 MG TABLET PO SCH (17:41)
[2021-06-17] MEDS: METOPROLOL TARTRATE 25 MG TABLET (FP) PO SCH (21:42)
[2021-06-17] MEDS: ATORVASTATIN CA 80 MG TABLET (FP) PO SCH (21:42)
[2021-06-17] MEDS: MAGNESIUM OXIDE 400 MG TABLET (FP) PO SCH (21:42)
[2021-06-17] MEDS: MELATONIN 5 MG TABLETS PO PRN (21:42)
[2021-06-17] MEDS: EZETIMIBE 10 MG TABLET (FP) PO SCH (21:43)
[2021-06-17] MEDS: traZODone HCL 50 MG TABLET (FP) PO SCH (21:43)
[2021-06-18] MEDS: GABAPENTIN 300 MG CAPSULE PO SCH ×3 (06:51→21:34)
[2021-06-18] MEDS: METOPROLOL TARTRATE 25 MG TABLET (FP) PO SCH ×2 (09:43→21:34)
[2021-06-18] MEDS: MAGNESIUM OXIDE 400 MG TABLET (FP) PO SCH ×2 (09:43→21:34)
[2021-06-18] MEDS: FOLIC ACID 1 MG TABLET (FP) PO SCH (09:43)
[2021-06-18] MEDS: NALTREXONE HCL 50 MG TABLET PO SCH (09:44)
[2021-06-18] MEDS ORDERED: METOPROLOL TARTRATE 25 MG TABLET (FP) PO SCH (10:00)
[2021-06-18] MEDS ORDERED: FUROSEMIDE 40 MG/4 ML INJECTABLE VIAL IVPUSH SCH ×2 (10:00→22:00)
[2021-06-18 12:18] LABS: BASO % 0.7 % (0-2.0); EOS % 2.3 % (0-4.5); HEMATOCRIT 39.3 % (35.4-49); LYMPH % 19.1 % (8-40); MCH 31.8 pg (25.7-33.7); MCHC 33.1 g/dl (32.0-35.9); MEAN PLT VOLUME 7.5 fl (7.5-11.1); NEUT % 67.9 % (42.8-82.8); PLATELET COUNT 222 10^3/uL (134-434); RBC 4.09 M/mm3 (4.00-5.60); RDW 15.1 % (11.9-15.9); WHITE BLOOD COUNT 6.9 K/mm3 (4.0-10.0)
[2021-06-18 12:48] LABS: ALBUMIN 3.2 g/dl (3.4-5.0); BLOOD UREA NITROGEN 15.1 mg/dL (7-18); CALCIUM 9.1 mg/dL (8.5-10.1); MAGNESIUM 1.6 mg/dL (1.8-2.4)
[2021-06-18 12:51] LABS: CREATININE 0.8 mg/dL (0.55-1.3)
[2021-06-18 12:53] LABS: BILIRUBIN,TOTAL 0.6 mg/dL (0.2-1); TOT PROT 6.3 g/dl (6.4-8.2)
[2021-06-18] MEDS: FUROSEMIDE 40 MG/4 ML INJECTABLE VIAL IVPUSH SCH (14:47)
[2021-06-18] MEDS: RIVAROXABAN 20 MG TABLET PO SCH (17:04)
[2021-06-18] MEDS: traZODone HCL 50 MG TABLET (FP) PO SCH (21:33)
[2021-06-18] MEDS: ATORVASTATIN CA 80 MG TABLET (FP) PO SCH (21:34)
[2021-06-18] MEDS: EZETIMIBE 10 MG TABLET (FP) PO SCH (21:34)
[2021-06-19] MEDS: FUROSEMIDE 40 MG/4 ML INJECTABLE VIAL IVPUSH SCH ×2 (06:51→13:20)
[2021-06-19] MEDS: GABAPENTIN 300 MG CAPSULE PO SCH ×3 (06:51→21:07)
[2021-06-19 07:20] LABS: BASO % 0.7 % (0-2.0); EOS % 3.1 % (0-4.5); HEMOGLOBIN 12.7 GM/dL (11.7-16.9); LYMPH % 27.6 % (8-40); MCH 31.8 pg (25.7-33.7); MCHC 33.5 g/dl (32.0-35.9); MEAN CELL VOLUME 94.8 fl (80-96); MEAN PLT VOLUME 7.4 fl (7.5-11.1); MONO % 10.3 % (3.8-10.2); NEUT % 58.3 % (42.8-82.8); PLATELET COUNT 195 10^3/uL (134-434); RBC 4.01 M/mm3 (4.00-5.60); RDW 14.7 % (11.9-15.9); WHITE BLOOD COUNT 5.2 K/mm3 (4.0-10.0)
[2021-06-19 07:48] LABS: CALCIUM 8.7 mg/dL (8.5-10.1); MAGNESIUM 1.7 mg/dL (1.8-2.4)
[2021-06-19 07:49] LABS: BLOOD UREA NITROGEN 18.5 mg/dL (7-18)
[2021-06-19 07:51] LABS: CREATININE 0.9 mg/dL (0.55-1.3)
[2021-06-19 07:52] LABS: BILIRUBIN,TOTAL 1.2 mg/dL (0.2-1); TOT PROT 6.1 g/dl (6.4-8.2)
[2021-06-19] MEDS: METOPROLOL TARTRATE 25 MG TABLET (FP) PO SCH ×2 (10:01→21:07)
[2021-06-19] MEDS: MAGNESIUM OXIDE 400 MG TABLET (FP) PO SCH ×2 (10:01→21:07)
[2021-06-19] MEDS: FOLIC ACID 1 MG TABLET (FP) PO SCH (10:01)
[2021-06-19] MEDS: NALTREXONE HCL 50 MG TABLET PO SCH (10:02)
[2021-06-19 13:42] LABS: EPI CELLS 1 /uL (0-25.1); HYALINE CASTS 0 /uL (0-3.1); URINE APPEARANCE CLEAR; URINE BACTERIA 5 /uL (0-1359); URINE BILIRUBIN NEGATIVE (NEGATIVE); URINE COLOR YELLOW; URINE GLUCOSE (UA) NEGATIVE (NEGATIVE); URINE KETONE NEGATIVE (NEGATIVE); URINE LEUK ESTERASE TRACE (NEGATIVE); URINE NITRITE NEGATIVE (NEGATIVE); URINE PROTEIN NEGATIVE (NEGATIVE); URINE RBC 411 /uL (0-23.9); URINE UROBILINOGEN 0.2 mg/dL (0.2-1.0); URINE WBC 13 /uL (0-25.8)
[2021-06-19] MEDS: RIVAROXABAN 20 MG TABLET PO SCH (17:32)
[2021-06-19 20:21] VITALS: BMI 36.5
[2021-06-19] MEDS: ATORVASTATIN CA 80 MG TABLET (FP) PO SCH (21:06)
[2021-06-19] MEDS: traZODone HCL 50 MG TABLET (FP) PO SCH (21:06)
[2021-06-19] MEDS: EZETIMIBE 10 MG TABLET (FP) PO SCH (21:07)
[2021-06-19] MEDS: MELATONIN 5 MG TABLETS PO PRN (21:07)
[2021-06-20] MEDS: GABAPENTIN 300 MG CAPSULE PO SCH ×3 (05:48→20:59)
[2021-06-20] MEDS: FUROSEMIDE 40 MG/4 ML INJECTABLE VIAL IVPUSH SCH ×2 (05:50→13:58)
[2021-06-20] MEDS: METOPROLOL TARTRATE 25 MG TABLET (FP) PO SCH ×2 (10:13→20:59)
[2021-06-20] MEDS: MAGNESIUM OXIDE 400 MG TABLET (FP) PO SCH ×2 (10:13→20:59)
[2021-06-20] MEDS: MULTIVITAMINS (DAILY MVI) TABLET (FP) PO SCH (10:13)
[2021-06-20] MEDS: THIAMINE HCL 100 MG TABLET (FP) PO SCH (10:13)
[2021-06-20] MEDS: NALTREXONE HCL 50 MG TABLET PO SCH (10:14)
[2021-06-20] MEDS: FOLIC ACID 1 MG TABLET (FP) PO SCH (10:14)
[2021-06-20 12:24] LABS: BASO % 0.8 % (0-2.0); EOS % 2.5 % (0-4.5); HEMATOCRIT 37.6 % (35.4-49); HEMOGLOBIN 12.6 GM/dL (11.7-16.9); MCH 31.5 pg (25.7-33.7); MCHC 33.6 g/dl (32.0-35.9); MEAN CELL VOLUME 93.9 fl (80-96); MONO % 9.7 % (3.8-10.2); PLATELET COUNT 212 10^3/uL (134-434); RDW 14.4 % (11.9-15.9); WHITE BLOOD COUNT 5.3 K/mm3 (4.0-10.0)
[2021-06-20 12:54] LABS: BLOOD UREA NITROGEN 20.8 mg/dL (7-18); CALCIUM 9.2 mg/dL (8.5-10.1); MAGNESIUM 1.7 mg/dL (1.8-2.4)
[2021-06-20 12:55] LABS: ALBUMIN 3.2 g/dl (3.4-5.0)
[2021-06-20 12:58] LABS: CREATININE 0.9 mg/dL (0.55-1.3)
[2021-06-20 12:59] LABS: BILIRUBIN,TOTAL 0.7 mg/dL (0.2-1); TOT PROT 6.3 g/dl (6.4-8.2)
[2021-06-20] MEDS: ACETAMINOPHEN 325 MG TABLET (FP) PO PRN (13:53)
[2021-06-20] MEDS: RIVAROXABAN 20 MG TABLET PO SCH (17:51)
[2021-06-20] MEDS: ATORVASTATIN CA 80 MG TABLET (FP) PO SCH (20:59)
[2021-06-20] MEDS: traZODone HCL 50 MG TABLET (FP) PO SCH (20:59)
[2021-06-20] MEDS: MELATONIN 5 MG TABLETS PO PRN (20:59)
[2021-06-20] MEDS: EZETIMIBE 10 MG TABLET (FP) PO SCH (20:59)
[2021-06-21] MEDS: FUROSEMIDE 40 MG/4 ML INJECTABLE VIAL IVPUSH SCH (05:14)
[2021-06-21] MEDS: GABAPENTIN 300 MG CAPSULE PO SCH ×3 (05:14→21:16)
[2021-06-21 06:50] LABS: EOS % 3.1 % (0-4.5); HEMATOCRIT 36.6 % (35.4-49); HEMOGLOBIN 12.8 GM/dL (11.7-16.9); LYMPH % 28.1 % (8-40); MCH 32.8 pg (25.7-33.7); MEAN CELL VOLUME 93.9 fl (80-96); MEAN PLT VOLUME 7.3 fl (7.5-11.1); MONO % 9.8 % (3.8-10.2); PLATELET COUNT 192 10^3/uL (134-434); RDW 14.7 % (11.9-15.9); WHITE BLOOD COUNT 4.7 K/mm3 (4.0-10.0)
[2021-06-21 07:20] LABS: CALCIUM 9.5 mg/dL (8.5-10.1)
[2021-06-21 07:21] LABS: ALBUMIN 3.3 g/dl (3.4-5.0); BLOOD UREA NITROGEN 24.4 mg/dL (7-18); MAGNESIUM 1.6 mg/dL (1.8-2.4)
[2021-06-21 07:25] LABS: TOT PROT 6.6 g/dl (6.4-8.2)
[2021-06-21 07:26] LABS: BILIRUBIN,TOTAL 0.6 mg/dL (0.2-1)
[2021-06-21] MEDS: THIAMINE HCL 100 MG TABLET (FP) PO SCH (10:48)
[2021-06-21] MEDS: MULTIVITAMINS (DAILY MVI) TABLET (FP) PO SCH (10:50)
[2021-06-21] MEDS: NALTREXONE HCL 50 MG TABLET PO SCH (10:50)
[2021-06-21] MEDS: MAGNESIUM OXIDE 400 MG TABLET (FP) PO SCH ×2 (10:50→21:16)
[2021-06-21] MEDS: FOLIC ACID 1 MG TABLET (FP) PO SCH (10:50)
[2021-06-21] MEDS: METOPROLOL TARTRATE 25 MG TABLET (FP) PO SCH ×2 (11:07→21:17)
[2021-06-21] MEDS: LOSARTAN POTASSIUM 25 MG TABLET PO SCH (14:15)
[2021-06-21] MEDS: RIVAROXABAN 20 MG TABLET PO SCH (17:26)
[2021-06-21] MEDS: MELATONIN 5 MG TABLETS PO PRN (21:16)
[2021-06-21] MEDS: EZETIMIBE 10 MG TABLET (FP) PO SCH (21:16)
[2021-06-21] MEDS: ATORVASTATIN CA 80 MG TABLET (FP) PO SCH (21:16)
[2021-06-21] MEDS: traZODone HCL 50 MG TABLET (FP) PO SCH (21:16)
[2021-06-22] MEDS: GABAPENTIN 300 MG CAPSULE PO SCH ×3 (05:56→21:39)
[2021-06-22] MEDS: ACETAMINOPHEN 325 MG TABLET (FP) PO PRN (06:33)
[2021-06-22 07:43] LABS: BASO % 0.7 % (0-2.0); HEMATOCRIT 35.6 % (35.4-49); HEMOGLOBIN 12.4 GM/dL (11.7-16.9); MCH 32.8 pg (25.7-33.7); MEAN CELL VOLUME 93.7 fl (80-96); MEAN PLT VOLUME 7.4 fl (7.5-11.1); MONO % 10.3 % (3.8-10.2); PLATELET COUNT 203 10^3/uL (134-434); RDW 14.8 % (11.9-15.9); WHITE BLOOD COUNT 5.8 K/mm3 (4.0-10.0)
[2021-06-22 08:12] LABS: BLOOD UREA NITROGEN 20.1 mg/dL (7-18)
[2021-06-22 08:13] LABS: ALBUMIN 2.7 g/dl (3.4-5.0); CALCIUM 8.6 mg/dL (8.5-10.1); MAGNESIUM 1.7 mg/dL (1.8-2.4)
[2021-06-22 08:15] LABS: CREATININE 1.1 mg/dL (0.55-1.3)
[2021-06-22 08:16] LABS: BILIRUBIN,TOTAL 0.6 mg/dL (0.2-1)
[2021-06-22] MEDS: MAGNESIUM OXIDE 400 MG TABLET (FP) PO SCH ×2 (09:24→21:39)
[2021-06-22] MEDS: THIAMINE HCL 100 MG TABLET (FP) PO SCH (09:24)
[2021-06-22] MEDS: LOSARTAN POTASSIUM 25 MG TABLET PO SCH (09:24)
[2021-06-22] MEDS: FOLIC ACID 1 MG TABLET (FP) PO SCH (09:24)
[2021-06-22] MEDS: MULTIVITAMINS (DAILY MVI) TABLET (FP) PO SCH (09:24)
[2021-06-22] MEDS: FUROSEMIDE 40 MG TABLET (FP) PO SCH (09:24)
[2021-06-22] MEDS: NALTREXONE HCL 50 MG TABLET PO SCH (09:25)
[2021-06-22] MEDS ORDERED: POTASSIUM CHLORIDE TABS 20 MEQ TABLET.ER (FP) PO ONE (11:15)
[2021-06-22] MEDS: METOPROLOL TARTRATE 25 MG TABLET (FP) PO SCH ×3 (11:52→21:42)
[2021-06-22] MEDS ORDERED: MAGNESIUM OXIDE 400 MG TABLET (FP) PO ONE (12:00)
[2021-06-22] MEDS: RIVAROXABAN 20 MG TABLET PO SCH (17:35)
[2021-06-22] MEDS: ATORVASTATIN CA 80 MG TABLET (FP) PO SCH (21:39)
[2021-06-22] MEDS: traZODone HCL 50 MG TABLET (FP) PO SCH (21:39)
[2021-06-22] MEDS: EZETIMIBE 10 MG TABLET (FP) PO SCH (21:39)
[2021-06-22] MEDS: MELATONIN 5 MG TABLETS PO PRN (21:42)
[2021-06-23] MEDS: GABAPENTIN 300 MG CAPSULE PO SCH ×2 (06:30→14:07)
[2021-06-23 08:22] LABS: ALBUMIN 2.7 g/dl (3.4-5.0); BLOOD UREA NITROGEN 22.3 mg/dL (7-18); CALCIUM 8.5 mg/dL (8.5-10.1)
[2021-06-23 08:23] LABS: MAGNESIUM 1.7 mg/dL (1.8-2.4)
[2021-06-23 08:26] LABS: BILIRUBIN,TOTAL 0.5 mg/dL (0.2-1); CREATININE 0.9 mg/dL (0.55-1.3)
[2021-06-23 08:37] LABS: BASO % 0.8 % (0-2.0); EOS % 3.3 % (0-4.5); HEMATOCRIT 36.2 % (35.4-49); HEMOGLOBIN 12.3 GM/dL (11.7-16.9); LYMPH % 26.4 % (8-40); MCH 32.1 pg (25.7-33.7); MCHC 33.9 g/dl (32.0-35.9); MEAN CELL VOLUME 94.7 fl (80-96); MEAN PLT VOLUME 7.8 fl (7.5-11.1); MONO % 9.6 % (3.8-10.2); NEUT % 59.9 % (42.8-82.8); PLATELET COUNT 214 10^3/uL (134-434); RBC 3.82 M/mm3 (4.00-5.60); RDW 14.6 % (11.9-15.9); WHITE BLOOD COUNT 4.9 K/mm3 (4.0-10.0)
[2021-06-23] MEDS ORDERED: MAGNESIUM 2GM/50ML STERILE WATER IVPB IVPB ONE (08:45)
[2021-06-23] MEDS: MAGNESIUM OXIDE 400 MG TABLET (FP) PO SCH (10:16)
[2021-06-23] MEDS: MULTIVITAMINS (DAILY MVI) TABLET (FP) PO SCH (10:16)
[2021-06-23] MEDS: THIAMINE HCL 100 MG TABLET (FP) PO SCH (10:16)
[2021-06-23] MEDS: FOLIC ACID 1 MG TABLET (FP) PO SCH (10:17)
[2021-06-23] MEDS: LOSARTAN POTASSIUM 25 MG TABLET PO SCH (10:17)
[2021-06-23] MEDS: NALTREXONE HCL 50 MG TABLET PO SCH (10:17)
[2021-06-23] MEDS: FUROSEMIDE 40 MG TABLET (FP) PO SCH (10:17)
[2021-06-23] MEDS: METOPROLOL TARTRATE 25 MG TABLET (FP) PO SCH (10:20)
[2021-06-23 16:05] VITALS: BP 104/52; PULSE 70; TEMP 97.7
[2021-06-23] MEDS: RIVAROXABAN 20 MG TABLET PO SCH (17:45)
== END 2021-06-23 18:25 | disposition home or self-care (01) | DRG 291 ==
LOC: JER 22:13 → J4W 23:35 → JERBED 06-17 01:55 → J4W 06-17 05:04 → OBSVTOIN 06-18 09:57
PROVIDERS: ADMIT Internal Medicine; ATTEND Nurse Practitioner Family
DX: I11.0 Hypertensive heart disease with heart failure (principal); I50.33 Acute on chronic diastolic (congestive) heart failure; J96.02 Acute respiratory failure with hypercapnia; I69.351 Hemiplegia and hemiparesis following cerebral infarction affecting right dominant side; J98.11 Atelectasis; E78.5 Hyperlipidemia, unspecified; I48.91 Unspecified atrial fibrillation; I25.10 Atherosclerotic heart disease of native coronary artery without angina pectoris; E83.42 Hypomagnesemia; R47.1 Dysarthria and anarthria; F17.290 Nicotine dependence, other tobacco product, uncomplicated; N28.1 Cyst of kidney, acquired; F10.20 Alcohol dependence, uncomplicated; F32.A Depression, unspecified; R63.4 Abnormal weight loss; G47.33 Obstructive sleep apnea (adult) (pediatric); E66.9 Obesity, unspecified; Z68.37 Body mass index [BMI] 37.0-37.9, adult; Z95.0 Presence of cardiac pacemaker
CPT/HCPCS: 36415; 36600; 70450-TC; 71045-TC-FY; 71250-TC; 80053; 80061; 81003; 82803; 83036; 83735; 83880; 84100; 84443; 84484; 85025; 87086; 93005; 93010; 93306-TC; 94761; 97116-GP; 97162-GP; 99285-25; C9803-CS; G0378; U0003; U0005